=== PATIENT | male | born 1940 | race Caucasian/White ===

== ENCOUNTER 2023-06-10 12:13 | Inpatient (IN) | payer MEDICARE ==
[2023-06-10 13:02] LABS: #Basophils 0.1 thou/uL (0.0-0.2); #Eosinphils 0.2 thou/uL (0.0-0.7); #Monocytes 0.7 thou/uL (0.11-0.59); %Basophils 0.8 % (0.0-1.0); %Eosinophils 1.9 % (0.0-10.0); %Lymphocytes 24.2 % (21.0-51.0); %Monocytes 9.2 % (0.0-10.0); %Neutrophils 63.1 % (42.0-75.0); Hematocrit 35.7 % (42.0-52.0); Hemoglobin 11.9 g/dL (14.0-18.0); Mean Corpuscular HGB CONC 33.3 g/dL (32.0-36.0); Mean Corpuscular Hemoglobin 33.9 pg (27.0-31.0); Mean Corpuscular Volume 101.7 fl (78.0-98.0); Mean Platelet Volume 9.8 fL (7.4-10.4); Platelet Count 188 10x3/uL (130-400); RBC Distribution Width 13.2 % (11.5-14.5); Red Blood Cell (RBC) Count 3.51 mill/uL (4.70-6.10); White Blood Cell (WBC) Count 7.9 10x3/uL (4.8-10.8)
[2023-06-10 13:24] LABS: INR-International Normal Ratio 1.2; PTT 32.4 sec (22.9-36.1); Prothrombin Time 15.2 sec (12.0-14.7)
[2023-06-10 13:27] LABS: ALT (SGPT) 18 U/L (8-55); AST (SGOT) 21 U/L (5-34); Albumin 3.2 g/dL (3.4-4.8); Alkaline Phosphatase 87 U/L (40-110); Anion Gap 13 mmol/L (10-20); BUN (Urea Nitrogen) 7 mg/dL (8.4-25.7); Bilirubin, Total 0.8 mg/dL (0.2-1.2); CK (CPK) 160 U/L (30-200); Calc. Creatinine Clearance 0 mL/min (70-130); Calcium 8.2 mg/dL (7.8-10.44); Carbon Dioxide 17 mmol/L (23-31); Chloride 99 mmol/L (98-107); Estimated GFR 90; Globulin 3.3 g/dL (2.4-3.5); Glucose 102 mg/dL (83-110); Potassium 4.1 mmol/L (3.5-5.1); Protein, Total 6.5 g/dL (5.8-8.1); Sodium 125 mmol/L (136-145)
[2023-06-10 13:28] LABS: Acetaminophen Less than 10 mcg/mL (10.0-30.0); Alcohol Less than 10.0 mg/dL (Less than 10); Salicylate Less than 8.0 mg/dL (15.0-30.0)
[2023-06-10] MEDS ORDERED: Dextrose 5% in Water 1,000 ML IV PRN (14:39)
[2023-06-10] MEDS ORDERED: Dextrose 50% Abboject 50 ML SYRINGE SLOW IVP PRN (14:39)
[2023-06-10] MEDS ORDERED: Ondansetron ODT 4 MG TAB PO PRN (14:39)
[2023-06-10] MEDS ORDERED: Glucagon 1 MG/ML KIT IM PRN (14:39)
[2023-06-10] MEDS ORDERED: Ondansetron PF 4 MG/2 ML Vial IVP PRN (14:39)
[2023-06-10] MEDS ORDERED: Sodium Chloride 0.9% 1,000 ML IV SCH (14:45)
[2023-06-10] MEDS ORDERED: Lidocaine 1% w/Epinephrine 1:100K 20 ML VIAL ONE (16:27)
[2023-06-10] MEDS ORDERED: niCARdipine 40MG In NaCl 40 MG/200 ML BAG IVPB PRN (16:35)
[2023-06-10] MEDS: hydrALAZINE 20 MG/ML VIAL SLOW IVP PRN (17:02)
[2023-06-10 17:03] LABS: Lactic Acid 1.6 mmol/L (0.5-2.2)
[2023-06-10] MEDS: niCARdipine 25 MG in Sodium Chloride 0.9% 250 ML 250 ML IVPB SCH (17:28)
[2023-06-10] MEDS: Acetaminophen 325 MG TAB PO PRN (17:31)
[2023-06-10] MEDS: Famotidine/PF 20 mg/2ml Vial SLOW IVP SCH (21:45)
[2023-06-11] MEDS ORDERED: CEFAZOLIN 1 GM in Sodium Chloride 0.9% 100 ML IVPB SCH (03:15)
[2023-06-11] MEDS ORDERED: fentaNYL PF 100 MCG/2 ML SYRINGE ONE (03:20)
[2023-06-11] MEDS ORDERED: CEFAZOLIN 2 GM in Sodium Chloride 0.9% 100 ML IVPB SCH (03:30)
[2023-06-11] MEDS ORDERED: Rocuronium Bromide 10 MG/ML (10ML VIAL) ONE (03:55)
[2023-06-11] MEDS ORDERED: PHENYLEPHRINE-NS 100 MCG/ML 10 ML SYRINGE ONE (03:55)
[2023-06-11] MEDS ORDERED: PROPOFOL 200 MG/20 ML VIAL ONE (03:55)
[2023-06-11 04:22] LABS: #Basophils 0.1 thou/uL (0.0-0.2); #Neutrophils 8.7 thou/uL (1.40-6.50); %Basophils 0.5 % (0.0-1.0); %Eosinophils 0.2 % (0.0-10.0); %Monocytes 9.1 % (0.0-10.0); %Neutrophils 78.7 % (42.0-75.0); Hematocrit 35.2 % (42.0-52.0); Hemoglobin 12.5 g/dL (14.0-18.0); Mean Corpuscular HGB CONC 35.5 g/dL (32.0-36.0); Mean Corpuscular Hemoglobin 34.2 pg (27.0-31.0); Mean Platelet Volume 9.9 fL (7.4-10.4); Platelet Count 220 10x3/uL (130-400); RBC Distribution Width 12.8 % (11.5-14.5); Red Blood Cell (RBC) Count 3.66 mill/uL (4.70-6.10)
[2023-06-11 04:48] LABS: Phosphorus 2.7 mg/dL (2.3-4.7)
[2023-06-11 04:51] LABS: Anion Gap 15 mmol/L (10-20); BUN (Urea Nitrogen) 7 mg/dL (8.4-25.7); Calc. Creatinine Clearance 97 mL/min (70-130); Calcium 8.3 mg/dL (7.8-10.44); Carbon Dioxide 15 mmol/L (23-31); Chloride 99 mmol/L (98-107); Estimated GFR 92; Glucose 112 mg/dL (83-110); Magnesium 1.8 mg/dL (1.6-2.6); Potassium 4.1 mmol/L (3.5-5.1); Sodium 125 mmol/L (136-145)
[2023-06-11 04:55] LABS: Mean Corpuscular Volume 96.2 fl (78.0-98.0)
[2023-06-11 05:10] LABS: INR-International Normal Ratio 1.2; PTT 33.7 sec (22.9-36.1); Prothrombin Time 15.8 sec (12.0-14.7)
[2023-06-11] MEDS ORDERED: PROPOFOL 20 ML ONE (05:32)
[2023-06-11 05:53] LABS: Actual Bicarbonate (HCO3a) 19.4 mEq/L (22-28); Base Excess (BEa) -4.7 mEq/L (-2.0 to +3.0); CO2 Tension 32.8 mmHg (35.0-45.0); Calcium, Ionized (arterial) 1.05 mmol/L (1.12-1.30); Carboxyhemoglobin (COHb) 0.9 gm% (0.0-3.0); Hematocrit-ABG 37 % (42.0-52.0); Hemoglobin (Hb) 12.5 g/dL (14.0-18.0); O2 Tension (PaO2), arterial 104.6 mmHg (> 60.0)
[2023-06-11 05:56] LABS: Puncture Site ALINE
[2023-06-11] MEDS ORDERED: Propofol 1,000 MG/100 ML VIAL IV ONE (06:08)
[2023-06-11] MEDS: niCARdipine 25 MG in Sodium Chloride 0.9% 250 ML 250 ML IVPB SCH (06:41)
[2023-06-11] MEDS ORDERED: Fentanyl BOLUS 250 ML IVPB PRN (07:15)
[2023-06-11] MEDS ORDERED: Propofol BOLUS 1,000 MG/100 ML VIAL IV PRN (07:15)
[2023-06-11] MEDS ORDERED: Fentanyl CADD 100 ML IV SCH (07:15)
[2023-06-11] MEDS ORDERED: DISCONTINUE PREVIOUS NARCOTIC PAIN MEDICATIONS AND BENZODIAZEPINES FS SCH (07:15)
[2023-06-11] MEDS ORDERED: Propofol 1,000 MG/100 ML VIAL IV PRN (07:15)
[2023-06-11] MEDS: Lactated Ringer's 1,000 ML IV SCH ×2 (08:28→18:05)
[2023-06-11] MEDS: Famotidine/PF 20 mg/2ml Vial SLOW IVP SCH ×2 (08:29→20:45)
[2023-06-11] MEDS ORDERED: Magnesium 2 GM/50 ML(in water) 2 GM in Premix Bag 1 BAG IVPB SCH (08:30)
[2023-06-11] MEDS ORDERED: Lactated Ringer's 500 ML IV SCH (08:30)
[2023-06-11] MEDS ORDERED: Lorazepam 2 MG/ML VIAL ONE (08:47)
[2023-06-11] MEDS: Morphine 2 MG/ML VIAL SLOW IVP PRN (09:10)
[2023-06-11] MEDS ORDERED: fentaNYL 50 mcg/mL 1 mL Vial SLOW IVP SCH (09:15)
[2023-06-11] MEDS: Ipratropium/Albuterol 3 ML NEB NEB SCH ×2 (12:47→19:00)
[2023-06-11] MEDS: Budesonide 0.5 MG/2 ML NEB NEB SCH (18:59)
[2023-06-11 20:35] LABS: Creatinine, Urine 51.21 mg/dL (63-166)
[2023-06-11] MEDS: Melatonin 3 MG TAB PO SCH (20:45)
[2023-06-12] MEDS: Lactated Ringer's 1,000 ML IV SCH (00:23)
[2023-06-12] MEDS: Ipratropium/Albuterol 3 ML NEB NEB SCH ×4 (01:58→18:33)
[2023-06-12 04:17] LABS: #Neutrophils 8.6 thou/uL (1.40-6.50); %Basophils 0.3 % (0.0-1.0); %Eosinophils 0.3 % (0.0-10.0); %Lymphocytes 13.4 % (21.0-51.0); %Monocytes 9.3 % (0.0-10.0); %Neutrophils 76.3 % (42.0-75.0); Hemoglobin 9.7 g/dL (14.0-18.0); Mean Corpuscular HGB CONC 34.6 g/dL (32.0-36.0); Mean Corpuscular Volume 95.2 fl (78.0-98.0); Mean Platelet Volume 9.9 fL (7.4-10.4); Platelet Count 172 10x3/uL (130-400); RBC Distribution Width 12.8 % (11.5-14.5); Red Blood Cell (RBC) Count 2.94 mill/uL (4.70-6.10); White Blood Cell (WBC) Count 11.2 10x3/uL (4.8-10.8)
[2023-06-12 04:54] LABS: Anion Gap 11 mmol/L (10-20); BUN (Urea Nitrogen) 5 mg/dL (8.4-25.7); Calc. Creatinine Clearance 99 mL/min (70-130); Calcium 7.5 mg/dL (7.8-10.44); Carbon Dioxide 20 mmol/L (23-31); Chloride 97 mmol/L (98-107); Estimated GFR 94; Glucose 105 mg/dL (83-110); Magnesium 1.7 mg/dL (1.6-2.6); Phosphorus 2.3 mg/dL (2.3-4.7); Potassium 3.7 mmol/L (3.5-5.1); Sodium 124 mmol/L (136-145)
[2023-06-12] MEDS: Budesonide 0.5 MG/2 ML NEB NEB SCH ×2 (06:54→18:34)
[2023-06-12] MEDS ORDERED: Potassium Phosphate 30 MMOL, Magnesium Sulfate 2 GM in Sodium Chloride 0.9% 250 ML 250 ML IVPB SCH (07:30)
[2023-06-12] MEDS ORDERED: Magnesium 2 GM/50 ML(in water) 2 GM in Premix Bag 1 BAG IVPB SCH (07:30)
[2023-06-12] MEDS: Sodium Chloride 0.9% 1,000 ML IV SCH ×3 (09:21→20:35)
[2023-06-12] MEDS: Famotidine/PF 20 mg/2ml Vial SLOW IVP SCH ×2 (09:22→20:19)
[2023-06-12] MEDS: niCARdipine 25 MG in Sodium Chloride 0.9% 250 ML 250 ML IVPB SCH (09:25)
[2023-06-12] MEDS: Sodium Chloride 1 GM TAB PO SCH ×2 (15:57→20:24)
[2023-06-12] MEDS: Acetaminophen 325 MG TAB PO PRN (16:07)
[2023-06-12] MEDS: Melatonin 3 MG TAB PO SCH (20:19)
[2023-06-13] MEDS: Ipratropium/Albuterol 3 ML NEB NEB SCH ×5 (01:05→23:42)
[2023-06-13] MEDS: Morphine 2 MG/ML VIAL SLOW IVP PRN (01:37)
[2023-06-13] MEDS: niCARdipine 25 MG in Sodium Chloride 0.9% 250 ML 250 ML IVPB SCH (04:11)
[2023-06-13 04:23] LABS: #Eosinphils 0.1 thou/uL (0.0-0.7); #Monocytes 1.1 thou/uL (0.11-0.59); #Neutrophils 7.7 thou/uL (1.40-6.50); %Basophils 0.2 % (0.0-1.0); %Eosinophils 0.7 % (0.0-10.0); %Lymphocytes 12.8 % (21.0-51.0); %Monocytes 10.4 % (0.0-10.0); %Neutrophils 75.4 % (42.0-75.0); Hemoglobin 9.6 g/dL (14.0-18.0); Mean Corpuscular HGB CONC 34.3 g/dL (32.0-36.0); Mean Corpuscular Hemoglobin 33.8 pg (27.0-31.0); Mean Corpuscular Volume 98.6 fl (78.0-98.0); Mean Platelet Volume 9.6 fL (7.4-10.4); Platelet Count 165 10x3/uL (130-400); Red Blood Cell (RBC) Count 2.84 mill/uL (4.70-6.10); White Blood Cell (WBC) Count 10.1 10x3/uL (4.8-10.8)
[2023-06-13 04:52] LABS: Anion Gap 12 mmol/L (10-20); BUN (Urea Nitrogen) 9 mg/dL (8.4-25.7); Calc. Creatinine Clearance 104 mL/min (70-130); Calcium 7.7 mg/dL (7.8-10.44); Carbon Dioxide 20 mmol/L (23-31); Chloride 99 mmol/L (98-107); Estimated GFR 95; Glucose 111 mg/dL (83-110); Magnesium 2.3 mg/dL (1.6-2.6); Phosphorus 2.6 mg/dL (2.3-4.7); Potassium 3.8 mmol/L (3.5-5.1); Sodium 127 mmol/L (136-145)
[2023-06-13] MEDS: Sodium Chloride 0.9% 1,000 ML IV SCH ×4 (06:18→23:12)
[2023-06-13] MEDS: Budesonide 0.5 MG/2 ML NEB NEB SCH ×2 (07:39→18:48)
[2023-06-13] MEDS: Amantadine HCl 100 mg Capsule PO SCH ×2 (08:57→23:12)
[2023-06-13] MEDS: Amlodipine 5 MG TAB PER TUBE SCH (08:57)
[2023-06-13] MEDS: Famotidine/PF 20 mg/2ml Vial SLOW IVP SCH ×2 (08:58→21:09)
[2023-06-13] MEDS: Sodium Chloride 1 GM TAB PO SCH ×3 (11:06→23:12)
[2023-06-13] MEDS: Melatonin 3 MG TAB PO SCH (21:09)
[2023-06-13] MEDS: Acetaminophen 325 MG TAB PO PRN (21:09)
[2023-06-14] MEDS: Acetaminophen 325 MG TAB PO PRN ×2 (03:43→16:06)
[2023-06-14] MEDS: Sodium Chloride 0.9% 1,000 ML IV SCH (03:44)
[2023-06-14] MEDS: Ipratropium/Albuterol 3 ML NEB NEB SCH ×4 (07:14→23:58)
[2023-06-14] MEDS: Budesonide 0.5 MG/2 ML NEB NEB SCH ×2 (07:15→18:41)
[2023-06-14 07:31] LABS: Actual Bicarbonate (HCO3a) 19.6 mEq/L (22-28); Base Excess (BEa) -2.9 mEq/L (-2.0 to +3.0); CO2 Tension 26.7 mmHg (35.0-45.0); Calcium, Ionized (arterial) 1.06 mmol/L (1.12-1.30); Carboxyhemoglobin (COHb) 0.5 gm% (0.0-3.0); Hematocrit-ABG 30 % (42.0-52.0); Hemoglobin (Hb) 10.2 g/dL (14.0-18.0); O2 Tension (PaO2), arterial 75.8 mmHg (> 60.0); Potassium - ABG Lab 3.89 mmol/L (3.70-5.30); pH, Arterial 7.483 (7.35-7.45)
[2023-06-14 07:32] LABS: Puncture Site RRA
[2023-06-14 07:33] LABS: ALV-art Gradient 104.725 mmHg (0-20)
[2023-06-14 07:50] LABS: #Eosinphils 0.1 thou/uL (0.0-0.7); #Monocytes 0.8 thou/uL (0.11-0.59); #Neutrophils 7.7 thou/uL (1.40-6.50); %Basophils 0.2 % (0.0-1.0); %Eosinophils 0.7 % (0.0-10.0); %Lymphocytes 8.5 % (21.0-51.0); %Monocytes 8.3 % (0.0-10.0); Hematocrit 27.1 % (42.0-52.0); Hemoglobin 9.3 g/dL (14.0-18.0); Mean Corpuscular HGB CONC 34.3 g/dL (32.0-36.0); Mean Corpuscular Hemoglobin 33.8 pg (27.0-31.0); Mean Corpuscular Volume 98.5 fl (78.0-98.0); Mean Platelet Volume 9.9 fL (7.4-10.4); Platelet Count 172 10x3/uL (130-400); Red Blood Cell (RBC) Count 2.75 mill/uL (4.70-6.10); White Blood Cell (WBC) Count 9.4 10x3/uL (4.8-10.8)
[2023-06-14] MEDS ORDERED: Furosemide 40 MG/4 ML VIAL SLOW IVP SCH (08:15)
[2023-06-14 08:27] LABS: Anion Gap 9 mmol/L (10-20); BUN (Urea Nitrogen) 12 mg/dL (8.4-25.7); Calc. Creatinine Clearance 99 mL/min (70-130); Calcium 7.6 mg/dL (7.8-10.44); Carbon Dioxide 20 mmol/L (23-31); Chloride 103 mmol/L (98-107); Estimated GFR 95; Glucose 128 mg/dL (83-110); Magnesium 1.9 mg/dL (1.6-2.6); Phosphorus 2.6 mg/dL (2.3-4.7); Potassium 3.9 mmol/L (3.5-5.1); Sodium 128 mmol/L (136-145)
[2023-06-14] MEDS: Amlodipine 5 MG TAB PER TUBE SCH (08:53)
[2023-06-14] MEDS: Famotidine 20 MG TAB PER TUBE SCH ×2 (08:54→21:20)
[2023-06-14] MEDS: Amantadine HCl 10 mg/ml Oral Solution PER TUBE SCH ×2 (09:31→21:20)
[2023-06-14] MEDS: Melatonin 3 MG TAB PO SCH (21:20)
[2023-06-14] MEDS: Lorazepam 2 MG/ML VIAL SLOW IVP PRN (22:14)
[2023-06-14] MEDS ORDERED: Dexmedetomidine In 0.9 % NaCl 100 ML IVPB SCH (23:00)
[2023-06-14] MEDS: Dexmedetomidine 400 MCG, Admixture Fee 1 EACH in Sodium Chloride 0.9% 96 ML IVPB SCH (23:42)
[2023-06-15] MEDS: hydrALAZINE 20 MG/ML VIAL SLOW IVP PRN (00:07)
[2023-06-15] MEDS: Lorazepam 2 MG/ML VIAL SLOW IVP PRN (04:22)
[2023-06-15 06:00] LABS: #Eosinphils 0.1 thou/uL (0.0-0.7); #Monocytes 0.9 thou/uL (0.11-0.59); #Neutrophils 7.2 thou/uL (1.40-6.50); %Basophils 0.3 % (0.0-1.0); %Eosinophils 0.6 % (0.0-10.0); %Lymphocytes 7.7 % (21.0-51.0); %Monocytes 9.7 % (0.0-10.0); %Neutrophils 81.2 % (42.0-75.0); Hematocrit 31.8 % (42.0-52.0); Hemoglobin 10.8 g/dL (14.0-18.0); Mean Corpuscular Hemoglobin 33.2 pg (27.0-31.0); Mean Corpuscular Volume 97.8 fl (78.0-98.0); Mean Platelet Volume 9.8 fL (7.4-10.4); Platelet Count 207 10x3/uL (130-400); Red Blood Cell (RBC) Count 3.25 mill/uL (4.70-6.10); White Blood Cell (WBC) Count 8.8 10x3/uL (4.8-10.8)
[2023-06-15 06:29] LABS: Anion Gap 11 mmol/L (10-20); BUN (Urea Nitrogen) 16 mg/dL (8.4-25.7); Calc. Creatinine Clearance 93 mL/min (70-130); Calcium 8.4 mg/dL (7.8-10.44); Carbon Dioxide 20 mmol/L (23-31); Estimated GFR 94; Glucose 103 mg/dL (83-110); Phosphorus 2.8 mg/dL (2.3-4.7); Potassium 3.6 mmol/L (3.5-5.1); Sodium 129 mmol/L (136-145)
[2023-06-15 06:37] LABS: Chloride 102 mmol/L (98-107)
[2023-06-15] MEDS: Ipratropium/Albuterol 3 ML NEB NEB SCH ×4 (06:59→23:38)
[2023-06-15] MEDS: Budesonide 0.5 MG/2 ML NEB NEB SCH ×2 (06:59→18:18)
[2023-06-15] MEDS: Famotidine 20 MG TAB PER TUBE SCH ×2 (08:38→20:06)
[2023-06-15] MEDS: Amlodipine 5 MG TAB PER TUBE SCH (10:40)
[2023-06-15] MEDS: Dexmedetomidine 400 MCG, Admixture Fee 1 EACH in Sodium Chloride 0.9% 96 ML IVPB SCH (18:32)
[2023-06-15] MEDS: Melatonin 3 MG TAB PO SCH (20:06)
[2023-06-16] MEDS: Lorazepam 2 MG/ML VIAL SLOW IVP PRN
[2023-06-16 04:38] LABS: #Eosinphils 0.3 thou/uL (0.0-0.7); #Monocytes 0.8 thou/uL (0.11-0.59); #Neutrophils 4.8 thou/uL (1.40-6.50); %Basophils 0.6 % (0.0-1.0); %Eosinophils 4.2 % (0.0-10.0); %Lymphocytes 15.7 % (21.0-51.0); %Monocytes 11.1 % (0.0-10.0); %Neutrophils 68.1 % (42.0-75.0); Hematocrit 26.1 % (42.0-52.0); Hemoglobin 8.8 g/dL (14.0-18.0); Mean Corpuscular HGB CONC 33.7 g/dL (32.0-36.0); Mean Corpuscular Volume 97.8 fl (78.0-98.0); Mean Platelet Volume 10.1 fL (7.4-10.4); Platelet Count 177 10x3/uL (130-400); RBC Distribution Width 13.3 % (11.5-14.5); Red Blood Cell (RBC) Count 2.67 mill/uL (4.70-6.10)
[2023-06-16 05:01] LABS: Anion Gap 10 mmol/L (10-20); BUN (Urea Nitrogen) 26 mg/dL (8.4-25.7); Calc. Creatinine Clearance 86 mL/min (70-130); Calcium 7.9 mg/dL (7.8-10.44); Carbon Dioxide 22 mmol/L (23-31); Chloride 102 mmol/L (98-107); Estimated GFR 92; Glucose 130 mg/dL (83-110); Potassium 3.7 mmol/L (3.5-5.1); Sodium 130 mmol/L (136-145)
[2023-06-16] MEDS: Ipratropium/Albuterol 3 ML NEB NEB SCH ×4 (07:07→23:59)
[2023-06-16] MEDS: Budesonide 0.5 MG/2 ML NEB NEB SCH ×2 (07:08→18:05)
[2023-06-16] MEDS: Amlodipine 5 MG TAB PER TUBE SCH (08:12)
[2023-06-16] MEDS: Famotidine 20 MG TAB PER TUBE SCH ×2 (08:13→20:23)
[2023-06-16] MEDS: Scopolamine 1.5 mg/72 hour Patch TD SCH (08:50)
[2023-06-16] MEDS: cefTRIAXone\\ROCEPHIN 2 GM in Sodium Chloride 0.9% 100 ML IVPB SCH (08:51)
[2023-06-16] MEDS: Dexmedetomidine 400 MCG, Admixture Fee 1 EACH in Sodium Chloride 0.9% 96 ML IVPB SCH (12:22)
[2023-06-16] MEDS: Melatonin 3 MG TAB PO SCH (20:21)
[2023-06-17] MEDS: Lorazepam 2 MG/ML VIAL SLOW IVP PRN ×2 (00:38→00:54)
[2023-06-17 04:52] LABS: Anion Gap 12 mmol/L (10-20); BUN (Urea Nitrogen) 29 mg/dL (8.4-25.7); Calc. Creatinine Clearance 89 mL/min (70-130); Calcium 7.9 mg/dL (7.8-10.44); Carbon Dioxide 19 mmol/L (23-31); Chloride 105 mmol/L (98-107); Estimated GFR 94; Glucose 138 mg/dL (83-110); Potassium 4.1 mmol/L (3.5-5.1); Sodium 132 mmol/L (136-145)
[2023-06-17] MEDS: Acetaminophen 325 MG TAB PO PRN (05:31)
[2023-06-17] MEDS: Dexmedetomidine 400 MCG, Admixture Fee 1 EACH in Sodium Chloride 0.9% 96 ML IVPB SCH (05:31)
[2023-06-17] MEDS: Ipratropium/Albuterol 3 ML NEB NEB SCH ×4 (07:01→21:45)
[2023-06-17] MEDS: Budesonide 0.5 MG/2 ML NEB NEB SCH ×2 (07:01→19:16)
[2023-06-17 07:30] LABS: #Eosinphils 0.3 thou/uL (0.0-0.7); #Monocytes 0.9 thou/uL (0.11-0.59); #Neutrophils 4.2 thou/uL (1.40-6.50); %Basophils 0.5 % (0.0-1.0); %Eosinophils 4.9 % (0.0-10.0); %Lymphocytes 16.8 % (21.0-51.0); %Monocytes 13.3 % (0.0-10.0); %Neutrophils 64.2 % (42.0-75.0); Hematocrit 26.4 % (42.0-52.0); Hemoglobin 8.8 g/dL (14.0-18.0); Mean Corpuscular HGB CONC 33.3 g/dL (32.0-36.0); Mean Corpuscular Volume 98.9 fl (78.0-98.0); Mean Platelet Volume 10.2 fL (7.4-10.4); Platelet Count 210 10x3/uL (130-400); RBC Distribution Width 13.3 % (11.5-14.5); Red Blood Cell (RBC) Count 2.67 mill/uL (4.70-6.10); White Blood Cell (WBC) Count 6.6 10x3/uL (4.8-10.8)
[2023-06-17] MEDS: Amlodipine 5 MG TAB PER TUBE SCH (08:32)
[2023-06-17] MEDS: Famotidine 20 MG TAB PER TUBE SCH ×2 (08:33→20:28)
[2023-06-17] MEDS: cefTRIAXone\\ROCEPHIN 2 GM in Sodium Chloride 0.9% 100 ML IVPB SCH (08:33)
[2023-06-18] MEDS: Ipratropium/Albuterol 3 ML NEB NEB SCH ×4 (06:22→23:57)
[2023-06-18] MEDS: Budesonide 0.5 MG/2 ML NEB NEB SCH ×2 (06:22→18:05)
[2023-06-18 07:33] LABS: #Basophils 0.1 thou/uL (0.0-0.2); #Eosinphils 0.2 thou/uL (0.0-0.7); #Monocytes 1.2 thou/uL (0.11-0.59); #Neutrophils 5.4 thou/uL (1.40-6.50); %Basophils 0.7 % (0.0-1.0); %Eosinophils 2.7 % (0.0-10.0); %Lymphocytes 16.9 % (21.0-51.0); %Monocytes 13.9 % (0.0-10.0); %Neutrophils 64.6 % (42.0-75.0); Hematocrit 27.3 % (42.0-52.0); Hemoglobin 8.9 g/dL (14.0-18.0); Mean Corpuscular HGB CONC 32.6 g/dL (32.0-36.0); Mean Corpuscular Hemoglobin 32.8 pg (27.0-31.0); Mean Corpuscular Volume 100.7 fl (78.0-98.0); Mean Platelet Volume 9.7 fL (7.4-10.4); Platelet Count 252 10x3/uL (130-400); RBC Distribution Width 13.6 % (11.5-14.5); Red Blood Cell (RBC) Count 2.71 mill/uL (4.70-6.10); White Blood Cell (WBC) Count 8.3 10x3/uL (4.8-10.8)
[2023-06-18 07:56] LABS: Anion Gap 11 mmol/L (10-20); BUN (Urea Nitrogen) 23 mg/dL (8.4-25.7); Calc. Creatinine Clearance 95 mL/min (70-130); Calcium 8.2 mg/dL (7.8-10.44); Carbon Dioxide 22 mmol/L (23-31); Chloride 105 mmol/L (98-107); Estimated GFR 96; Glucose 120 mg/dL (83-110); Potassium 4.3 mmol/L (3.5-5.1); Sodium 134 mmol/L (136-145)
[2023-06-18] MEDS: cefTRIAXone\\ROCEPHIN 2 GM in Sodium Chloride 0.9% 100 ML IVPB SCH (08:20)
[2023-06-18] MEDS: Famotidine 20 MG TAB PER TUBE SCH ×2 (08:20→20:24)
[2023-06-18] MEDS: Amlodipine 5 MG TAB PER TUBE SCH (08:20)
[2023-06-18] MEDS: Haloperidol Lactate 5 MG/ML VIAL SLOW IVP PRN (13:51)
[2023-06-19] MEDS: Haloperidol Lactate 5 MG/ML VIAL SLOW IVP PRN (00:11)
[2023-06-19] MEDS: Budesonide 0.5 MG/2 ML NEB NEB SCH ×2 (07:16→18:47)
[2023-06-19] MEDS: Ipratropium/Albuterol 3 ML NEB NEB SCH ×4 (07:16→23:27)
[2023-06-19 07:22] LABS: #Basophils 0.1 thou/uL (0.0-0.2); #Eosinphils 0.2 thou/uL (0.0-0.7); #Monocytes 1.2 thou/uL (0.11-0.59); %Basophils 0.6 % (0.0-1.0); %Eosinophils 2.2 % (0.0-10.0); %Lymphocytes 16.7 % (21.0-51.0); %Neutrophils 66.9 % (42.0-75.0); Hematocrit 27.8 % (42.0-52.0); Mean Corpuscular HGB CONC 32.4 g/dL (32.0-36.0); Mean Corpuscular Hemoglobin 32.6 pg (27.0-31.0); Mean Corpuscular Volume 100.7 fl (78.0-98.0); Mean Platelet Volume 9.6 fL (7.4-10.4); Platelet Count 274 10x3/uL (130-400); RBC Distribution Width 13.6 % (11.5-14.5); Red Blood Cell (RBC) Count 2.76 mill/uL (4.70-6.10)
[2023-06-19 07:51] LABS: ALT (SGPT) 90 U/L (8-55); AST (SGOT) 58 U/L (5-34); Albumin 2.7 g/dL (3.4-4.8); Alkaline Phosphatase 94 U/L (40-110); Anion Gap 11 mmol/L (10-20); BUN (Urea Nitrogen) 23 mg/dL (8.4-25.7); Bilirubin, Total 0.5 mg/dL (0.2-1.2); Calc. Creatinine Clearance 88 mL/min (70-130); Calcium 8.1 mg/dL (7.8-10.44); Carbon Dioxide 22 mmol/L (23-31); Chloride 105 mmol/L (98-107); Estimated GFR 94; Globulin 3.5 g/dL (2.4-3.5); Glucose 124 mg/dL (83-110); Potassium 4.4 mmol/L (3.5-5.1); Protein, Total 6.2 g/dL (5.8-8.1); Sodium 134 mmol/L (136-145)
[2023-06-19] MEDS: Scopolamine 1.5 mg/72 hour Patch TD SCH (08:41)
[2023-06-19] MEDS: cefTRIAXone\\ROCEPHIN 2 GM in Sodium Chloride 0.9% 100 ML IVPB SCH (08:41)
[2023-06-19] MEDS: Acetaminophen 325 MG TAB PO PRN (08:41)
[2023-06-19] MEDS: Famotidine 20 MG TAB PER TUBE SCH ×2 (08:42→21:53)
[2023-06-19] MEDS: Amlodipine 5 MG TAB PER TUBE SCH (09:00)
[2023-06-19] MEDS ORDERED: Polyethylene Glycol 3350 17 GM Packet PER TUBE SCH (09:45)
[2023-06-19] MEDS ORDERED: Lactated Ringer's 1,000 ML IV SCH (21:15)
[2023-06-20] MEDS: Ipratropium/Albuterol 3 ML NEB NEB SCH (07:33)
[2023-06-20] MEDS: Budesonide 0.5 MG/2 ML NEB NEB SCH ×2 (07:34→18:34)
[2023-06-20] MEDS: Polyethylene Glycol 3350 17 GM Packet PER TUBE SCH (09:00)
[2023-06-20] MEDS: Amlodipine 5 MG TAB PER TUBE SCH (09:34)
[2023-06-20] MEDS: Famotidine 20 MG TAB PER TUBE SCH ×2 (09:34→20:28)
[2023-06-20] MEDS: cefTRIAXone\\ROCEPHIN 2 GM in Sodium Chloride 0.9% 100 ML IVPB SCH (09:37)
[2023-06-20] MEDS: Dextrose 5 % And 0.9 % NaCl 1,000 ML IV SCH ×2 (10:00→23:47)
[2023-06-21] MEDS: Budesonide 0.5 MG/2 ML NEB NEB SCH ×2 (07:31→19:10)
[2023-06-21] MEDS ORDERED: Thrombin 5000 UNITS/5 ML VIAL ONE (07:55)
[2023-06-21] MEDS ORDERED: Vancomycin 1 GM VIAL ONE (07:55)
[2023-06-21 08:15] LABS: Anion Gap 12 mmol/L (10-20); BUN (Urea Nitrogen) 15 mg/dL (8.4-25.7); Calc. Creatinine Clearance 91 mL/min (70-130); Calcium 8.2 mg/dL (7.8-10.44); Carbon Dioxide 20 mmol/L (23-31); Chloride 106 mmol/L (98-107); Estimated GFR 95; Glucose 115 mg/dL (83-110); Sodium 134 mmol/L (136-145)
[2023-06-21] MEDS: Polyethylene Glycol 3350 17 GM Packet PER TUBE SCH (09:33)
[2023-06-21] MEDS: Famotidine 20 MG TAB PER TUBE SCH ×2 (09:33→21:13)
[2023-06-21] MEDS: Amlodipine 5 MG TAB PER TUBE SCH (09:33)
[2023-06-21] MEDS ORDERED: Bisacodyl 10 MG SUPP PR SCH (09:45)
[2023-06-21] MEDS: Dextrose 5 % And 0.9 % NaCl 1,000 ML IV SCH (13:11)
[2023-06-21] MEDS: Acetaminophen 325 MG TAB PO PRN (21:13)
[2023-06-21] MEDS: Senokot S 8.6-50 MG TAB PO SCH (21:13)
[2023-06-22] MEDS: Dextrose 5 % And 0.9 % NaCl 1,000 ML IV SCH ×2 (01:20→17:29)
[2023-06-22] MEDS: Budesonide 0.5 MG/2 ML NEB NEB SCH ×2 (06:57→19:18)
[2023-06-22] MEDS: Amlodipine 5 MG TAB PER TUBE SCH (07:41)
[2023-06-22] MEDS: Famotidine 20 MG TAB PO SCH ×2 (07:42→20:21)
[2023-06-22] MEDS: Tamsulosin HCl 0.4 MG CAP PO SCH (07:42)
[2023-06-22] MEDS: Polyethylene Glycol 3350 17 GM Packet PER TUBE SCH (07:42)
[2023-06-22] MEDS: Senokot S 8.6-50 MG TAB PO SCH ×2 (07:42→20:21)
[2023-06-22] MEDS: Bisacodyl 10 MG SUPP PR SCH (07:43)
[2023-06-22] MEDS ORDERED: Tamsulosin HCl 0.4 MG CAP PO SCH (09:00)
[2023-06-23 05:39] LABS: #Basophils 0.1 thou/uL (0.0-0.2); #Eosinphils 0.3 thou/uL (0.0-0.7); #Monocytes 0.8 thou/uL (0.11-0.59); #Neutrophils 7.3 thou/uL (1.40-6.50); %Basophils 0.5 % (0.0-1.0); %Eosinophils 2.8 % (0.0-10.0); %Lymphocytes 15.5 % (21.0-51.0); %Monocytes 8.4 % (0.0-10.0); %Neutrophils 72.4 % (42.0-75.0); Hematocrit 28.3 % (42.0-52.0); Hemoglobin 9.1 g/dL (14.0-18.0); Mean Corpuscular HGB CONC 32.2 g/dL (32.0-36.0); Mean Corpuscular Hemoglobin 32.5 pg (27.0-31.0); Mean Corpuscular Volume 101.1 fl (78.0-98.0); Mean Platelet Volume 9.4 fL (7.4-10.4); Platelet Count 434 10x3/uL (130-400); RBC Distribution Width 13.2 % (11.5-14.5)
[2023-06-23 05:52] LABS: Anion Gap 11 mmol/L (10-20); BUN (Urea Nitrogen) 13 mg/dL (8.4-25.7); Calc. Creatinine Clearance 106 mL/min (70-130); Calcium 7.9 mg/dL (7.8-10.44); Carbon Dioxide 19 mmol/L (23-31); Chloride 111 mmol/L (98-107); Estimated GFR 96; Glucose 130 mg/dL (83-110); Phosphorus 3.2 mg/dL (2.3-4.7); Potassium 3.7 mmol/L (3.5-5.1); Sodium 137 mmol/L (136-145)
[2023-06-23] MEDS: Bisacodyl 10 MG SUPP PR SCH (08:21)
[2023-06-23] MEDS: Famotidine 20 MG TAB PO SCH ×2 (08:21→20:58)
[2023-06-23] MEDS: Polyethylene Glycol 3350 17 GM Packet PER TUBE SCH (08:21)
[2023-06-23] MEDS: Tamsulosin HCl 0.4 MG CAP PO SCH (08:21)
[2023-06-23] MEDS: Senokot S 8.6-50 MG TAB PO SCH ×2 (08:21→20:58)
[2023-06-23] MEDS: Amlodipine 5 MG TAB PER TUBE SCH (08:23)
[2023-06-23 09:03] VITALS: BMI 25.4
[2023-06-23] MEDS: Budesonide 0.5 MG/2 ML NEB NEB SCH ×2 (09:30→19:02)
[2023-06-24 05:26] LABS: #Basophils 0.1 thou/uL (0.0-0.2); #Eosinphils 0.3 thou/uL (0.0-0.7); #Monocytes 0.7 thou/uL (0.11-0.59); #Neutrophils 8.5 thou/uL (1.40-6.50); %Basophils 0.4 % (0.0-1.0); %Eosinophils 2.9 % (0.0-10.0); %Lymphocytes 14.8 % (21.0-51.0); %Monocytes 6.6 % (0.0-10.0); %Neutrophils 74.9 % (42.0-75.0); Hematocrit 28.2 % (42.0-52.0); Mean Corpuscular HGB CONC 31.9 g/dL (32.0-36.0); Mean Corpuscular Hemoglobin 32.3 pg (27.0-31.0); Mean Corpuscular Volume 101.1 fl (78.0-98.0); Mean Platelet Volume 9.5 fL (7.4-10.4); Platelet Count 484 10x3/uL (130-400); RBC Distribution Width 13.2 % (11.5-14.5); Red Blood Cell (RBC) Count 2.79 mill/uL (4.70-6.10); White Blood Cell (WBC) Count 11.3 10x3/uL (4.8-10.8)
[2023-06-24] MEDS: Bisacodyl 10 MG SUPP PR SCH (10:15)
[2023-06-24] MEDS: Famotidine 20 MG TAB PO SCH ×2 (10:16→20:41)
[2023-06-24] MEDS: Polyethylene Glycol 3350 17 GM Packet PER TUBE SCH (10:16)
[2023-06-24] MEDS: Senokot S 8.6-50 MG TAB PO SCH ×2 (10:16→20:41)
[2023-06-24] MEDS: Tamsulosin HCl 0.4 MG CAP PO SCH (10:16)
[2023-06-24] MEDS: Amlodipine 5 MG TAB PER TUBE SCH (10:17)
[2023-06-24] MEDS: Budesonide 0.5 MG/2 ML NEB NEB SCH ×2 (10:35→18:42)
[2023-06-25] MEDS: Budesonide 0.5 MG/2 ML NEB NEB SCH ×2 (07:33→18:42)
[2023-06-25 07:37] LABS: #Eosinphils 0.3 thou/uL (0.0-0.7); #Monocytes 0.7 thou/uL (0.11-0.59); #Neutrophils 10.2 thou/uL (1.40-6.50); %Basophils 0.3 % (0.0-1.0); %Eosinophils 2.3 % (0.0-10.0); %Lymphocytes 10.9 % (21.0-51.0); %Monocytes 5.6 % (0.0-10.0); %Neutrophils 80.4 % (42.0-75.0); Hematocrit 30.8 % (42.0-52.0); Mean Corpuscular HGB CONC 32.5 g/dL (32.0-36.0); Mean Corpuscular Hemoglobin 32.3 pg (27.0-31.0); Mean Corpuscular Volume 99.4 fl (78.0-98.0); Mean Platelet Volume 9.2 fL (7.4-10.4); Platelet Count 499 10x3/uL (130-400); RBC Distribution Width 13.2 % (11.5-14.5); White Blood Cell (WBC) Count 12.7 10x3/uL (4.8-10.8)
[2023-06-25 08:05] LABS: ALT (SGPT) 52 U/L (8-55); AST (SGOT) 34 U/L (5-34); Albumin 2.6 g/dL (3.4-4.8); Alkaline Phosphatase 109 U/L (40-110); Anion Gap 12 mmol/L (10-20); BUN (Urea Nitrogen) 13 mg/dL (8.4-25.7); Bilirubin, Total 0.5 mg/dL (0.2-1.2); Calc. Creatinine Clearance 102 mL/min (70-130); Carbon Dioxide 21 mmol/L (23-31); Chloride 104 mmol/L (98-107); Estimated GFR 95; Globulin 3.8 g/dL (2.4-3.5); Glucose 122 mg/dL (83-110); Potassium 4.3 mmol/L (3.5-5.1); Protein, Total 6.4 g/dL (5.8-8.1); Sodium 133 mmol/L (136-145)
[2023-06-25] MEDS: Tamsulosin HCl 0.4 MG CAP PO SCH (09:27)
[2023-06-25] MEDS: Famotidine 20 MG TAB PO SCH ×2 (09:27→21:40)
[2023-06-25] MEDS: Senokot S 8.6-50 MG TAB PO SCH ×2 (09:27→21:40)
[2023-06-25] MEDS: Amlodipine 5 MG TAB PER TUBE SCH (09:28)
[2023-06-25] MEDS: Polyethylene Glycol 3350 17 GM Packet PER TUBE SCH ×2 (09:28→17:01)
[2023-06-25] MEDS: Bisacodyl 10 MG SUPP PR SCH (09:28)
[2023-06-26 05:50] LABS: #Basophils 0.1 thou/uL (0.0-0.2); #Eosinphils 0.3 thou/uL (0.0-0.7); #Monocytes 0.9 thou/uL (0.11-0.59); %Basophils 0.5 % (0.0-1.0); %Eosinophils 2.5 % (0.0-10.0); %Lymphocytes 12.7 % (21.0-51.0); %Monocytes 6.8 % (0.0-10.0); %Neutrophils 77.2 % (42.0-75.0); Hematocrit 30.2 % (42.0-52.0); Hemoglobin 9.7 g/dL (14.0-18.0); Mean Corpuscular HGB CONC 32.1 g/dL (32.0-36.0); Mean Corpuscular Volume 99.7 fl (78.0-98.0); Mean Platelet Volume 9.4 fL (7.4-10.4); Platelet Count 509 10x3/uL (130-400); RBC Distribution Width 13.1 % (11.5-14.5); Red Blood Cell (RBC) Count 3.03 mill/uL (4.70-6.10); White Blood Cell (WBC) Count 12.9 10x3/uL (4.8-10.8)
[2023-06-26 06:34] LABS: ALT (SGPT) 43 U/L (8-55); AST (SGOT) 27 U/L (5-34); Albumin 2.7 g/dL (3.4-4.8); Alkaline Phosphatase 108 U/L (40-110); Anion Gap 11 mmol/L (10-20); BUN (Urea Nitrogen) 16 mg/dL (8.4-25.7); Bilirubin, Total 0.5 mg/dL (0.2-1.2); Calc. Creatinine Clearance 92 mL/min (70-130); Carbon Dioxide 21 mmol/L (23-31); Chloride 104 mmol/L (98-107); Estimated GFR 92; Glucose 101 mg/dL (83-110); Potassium 4.2 mmol/L (3.5-5.1); Protein, Total 6.7 g/dL (5.8-8.1); Sodium 132 mmol/L (136-145)
[2023-06-26] MEDS: Budesonide 0.5 MG/2 ML NEB NEB SCH ×2 (06:48→18:30)
[2023-06-26] MEDS: Polyethylene Glycol 3350 17 GM Packet PER TUBE SCH (08:10)
[2023-06-26] MEDS ORDERED: Senokot S 8.6-50 MG TAB PO PRN (10:22)
[2023-06-26] MEDS ORDERED: Polyethylene Glycol 3350 17 GM Packet PER TUBE PRN (10:23)
[2023-06-26] MEDS: Tamsulosin HCl 0.4 MG CAP PO SCH (10:36)
[2023-06-26] MEDS: Amlodipine 5 MG TAB PER TUBE SCH (10:36)
[2023-06-26] MEDS: Famotidine 20 MG TAB PO SCH ×2 (10:36→20:30)
[2023-06-26] MEDS: Senokot S 8.6-50 MG TAB PO SCH (10:44)
[2023-06-26] MEDS: Bisacodyl 10 MG SUPP PR SCH (10:44)
[2023-06-26] MEDS: Ipratropium/Albuterol 3 ML NEB NEB PRN ×2 (17:25→18:28)
[2023-06-26] MEDS ORDERED: Sodium Chloride 0.9% 500 ML IV SCH (19:45)
[2023-06-26 20:06] LABS: #Eosinphils 0.1 thou/uL (0.0-0.7); #Monocytes 0.8 thou/uL (0.11-0.59); #Neutrophils 9.7 thou/uL (1.40-6.50); %Basophils 0.3 % (0.0-1.0); %Eosinophils 1.1 % (0.0-10.0); %Lymphocytes 7.7 % (21.0-51.0); %Monocytes 6.8 % (0.0-10.0); %Neutrophils 83.8 % (42.0-75.0); Hematocrit 34.8 % (42.0-52.0); Hemoglobin 11.1 g/dL (14.0-18.0); Mean Corpuscular HGB CONC 31.9 g/dL (32.0-36.0); Mean Corpuscular Hemoglobin 31.4 pg (27.0-31.0); Mean Corpuscular Volume 98.6 fl (78.0-98.0); Mean Platelet Volume 9.4 fL (7.4-10.4); Platelet Count 528 10x3/uL (130-400); RBC Distribution Width 13.2 % (11.5-14.5); Red Blood Cell (RBC) Count 3.53 mill/uL (4.70-6.10); White Blood Cell (WBC) Count 11.6 10x3/uL (4.8-10.8)
[2023-06-26] MEDS: Acetaminophen 325 MG TAB PO PRN (20:30)
[2023-06-26 20:54] LABS: Anion Gap 14 mmol/L (10-20); BUN (Urea Nitrogen) 18 mg/dL (8.4-25.7); Calc. Creatinine Clearance 80 mL/min (70-130); Calcium 8.4 mg/dL (7.8-10.44); Carbon Dioxide 18 mmol/L (23-31); Chloride 105 mmol/L (98-107); Estimated GFR 88; Glucose 116 mg/dL (83-110); Phosphorus 3.6 mg/dL (2.3-4.7); Potassium 4.2 mmol/L (3.5-5.1); Sodium 133 mmol/L (136-145)
[2023-06-27 00:35] LABS: Bilirubin Negative (Negative); Blood, Urine 1+ (Negative); CAUTI Indications for Culture Fever or rigors; Clarity Clear (Clear); Glucose, Urine (Dipstick) Normal (Negative); Ketone, Urine Negative (Negative); Leukocyte 25 Leu/uL (Negative); Nitrite Negative (Negative); Protein, Urine (Dipstick) 10 mg/dL (Neg-Trace); Specific Gravity, Urine 1.023 (1.002-1.036); Squamous Epithelial 0-3 HPF (0-3)
[2023-06-27 00:37] LABS: Bacteria/HPF Rare-Few HPF (None Seen)
[2023-06-27 00:38] LABS: Urine Culture Reflex No No
[2023-06-27] MEDS: Acetaminophen 325 MG TAB PO PRN (04:29)
[2023-06-27 05:56] LABS: #Eosinphils 0.1 thou/uL (0.0-0.7); #Monocytes 0.8 thou/uL (0.11-0.59); #Neutrophils 6.1 thou/uL (1.40-6.50); %Basophils 0.4 % (0.0-1.0); %Eosinophils 0.9 % (0.0-10.0); %Lymphocytes 8.7 % (21.0-51.0); %Neutrophils 79.6 % (42.0-75.0); Hematocrit 27.6 % (42.0-52.0); Mean Corpuscular HGB CONC 32.6 g/dL (32.0-36.0); Mean Corpuscular Hemoglobin 31.7 pg (27.0-31.0); Mean Corpuscular Volume 97.2 fl (78.0-98.0); Mean Platelet Volume 9.1 fL (7.4-10.4); RBC Distribution Width 13.3 % (11.5-14.5); Red Blood Cell (RBC) Count 2.84 mill/uL (4.70-6.10); White Blood Cell (WBC) Count 7.6 10x3/uL (4.8-10.8)
[2023-06-27 06:05] LABS: Platelet Count 428 10x3/uL (130-400)
[2023-06-27 06:24] LABS: ALT (SGPT) 41 U/L (8-55); AST (SGOT) 43 U/L (5-34); Albumin 2.7 g/dL (3.4-4.8); Alkaline Phosphatase 93 U/L (40-110); Anion Gap 10 mmol/L (10-20); BUN (Urea Nitrogen) 17 mg/dL (8.4-25.7); Bilirubin, Total 0.7 mg/dL (0.2-1.2); Calc. Creatinine Clearance 93 mL/min (70-130); Carbon Dioxide 22 mmol/L (23-31); Chloride 106 mmol/L (98-107); Estimated GFR 92; Globulin 3.8 g/dL (2.4-3.5); Glucose 105 mg/dL (83-110); Potassium 3.8 mmol/L (3.5-5.1); Protein, Total 6.5 g/dL (5.8-8.1); Sodium 134 mmol/L (136-145)
[2023-06-27] MEDS: Budesonide 0.5 MG/2 ML NEB NEB SCH (08:00)
[2023-06-27 08:01] LABS: Band 2 % (5-11); CellaVision Operator ID LAB.GE; Large Platelets 2.9 % (0-5); Lymphocytes 3 % (21-51); Monocytes 6 % (0-10); Neutrophil 86 % (42-75); Platelet Adequacy Comment Platelets Increased; Polychromasia SLIGHT = 2-3 cells HPF (0-2); Reactive Lymphocytes 3 % (0-10); Total Cell Count 102; Vacuoles SLIGHT
[2023-06-27] MEDS: Ipratropium/Albuterol 3 ML NEB NEB PRN (08:01)
[2023-06-27] MEDS ORDERED: Amlodipine 5 MG TAB PO SCH (09:00)
[2023-06-27] MEDS ORDERED: Sodium Chloride 0.9% 500 ML IV SCH (09:00)
[2023-06-27] MEDS ORDERED: Amoxicillin/Potassium Clav 250 mg/5 ml Oral Suspension PO SCH (09:00)
[2023-06-27 09:09] VITALS: TEMP 98.9
[2023-06-27] MEDS: Famotidine 20 MG TAB PO SCH (09:25)
[2023-06-27] MEDS: Tamsulosin HCl 0.4 MG CAP PO SCH (09:25)
[2023-06-27 15:38] VITALS: BP 126/59
== END 2023-06-27 15:14 | DRG 25 ==
LOC: ERS 12:13 → CCU 14:45 → SURG B 06-21 15:07
PROVIDERS: ADMIT Specialist; ATTEND Specialist
PROC: 0HQ1XZZ Repair Face Skin, External Approach (ICD-10-PCS; 2023-06-10)
PROC: 00C40ZZ Extirpation of Matter from Intracranial Subdural Space, Open Approach (ICD-10-PCS; principal; 2023-06-11)
PROC: 0BH18EZ Insertion of Endotracheal Airway into Trachea, Via Natural or Artificial Opening Endoscopic (ICD-10-PCS; 2023-06-11)
PROC: 0DH67UZ Insertion of Feeding Device into Stomach, Via Natural or Artificial Opening (ICD-10-PCS; 2023-06-11)
PROC: 4A133R1 Monitoring of Arterial Saturation, Peripheral, Percutaneous Approach (ICD-10-PCS; 2023-06-11)
PROC: 5A1955Z Respiratory Ventilation, Greater than 96 Consecutive Hours (ICD-10-PCS; 2023-06-11)
PROC: 0B978ZZ Drainage of Left Main Bronchus, Via Natural or Artificial Opening Endoscopic (ICD-10-PCS; 2023-06-11)
PROC: 3E03329 Introduction of Other Anti-infective into Peripheral Vein, Percutaneous Approach (ICD-10-PCS; 2023-06-21)
PROC: 30233J1 Transfusion of Nonautologous Serum Albumin into Peripheral Vein, Percutaneous Approach (ICD-10-PCS; 2023-06-26)
DX: S06.5XAA Traumatic subdural hemorrhage with loss of consciousness status unknown, initial encounter (principal); G93.41 Metabolic encephalopathy; S06.A0XA Traumatic brain compression without herniation, initial encounter; J96.01 Acute respiratory failure with hypoxia; J69.0 Pneumonitis due to inhalation of food and vomit; J98.19 Other pulmonary collapse; E87.1 Hypo-osmolality and hyponatremia; S22.32XA Fracture of one rib, left side, initial encounter for closed fracture; E87.20 Acidosis, unspecified; J90 Pleural effusion, not elsewhere classified; Z66 Do not resuscitate; S06.6XAA Traumatic subarachnoid hemorrhage with loss of consciousness status unknown, initial encounter; S01.111A Laceration without foreign body of right eyelid and periocular area, initial encounter; S40.012A Contusion of left shoulder, initial encounter; W10.9XXA Fall (on) (from) unspecified stairs and steps, initial encounter; M19.90 Unspecified osteoarthritis, unspecified site; F10.90 Alcohol use, unspecified, uncomplicated; I45.10 Unspecified right bundle-branch block; S42.034A Nondisplaced fracture of lateral end of right clavicle, initial encounter for closed fracture; R33.9 Retention of urine, unspecified; Z98.49 Cataract extraction status, unspecified eye; Z87.891 Personal history of nicotine dependence; I50.9 Heart failure, unspecified; I11.0 Hypertensive heart disease with heart failure
CPT/HCPCS: 36415; 36416; 36600; 70450; 71045; 72125; 72170; 74018; 80048; 80053; 80307; 81001; 82533; 82550; 82570; 82805; 83605; 83735; 83880; 83930; 83935; 84100; 84145; 84300; 84443; 84484; 85025; 85610; 85730; 86850; 86900; 86901; 87040; 87070; 87205; 93005; 93970; 94002; 94003; 94640; C1713; J0360; J0696; J1630; J1940; J2060; J2272; J2704; J3370; J3475; J3490; J7030; J7042; J7050; J7120; J7620; J7626; P9045; S0028